=== PATIENT | female | born 1970 ===

== ENCOUNTER 2020-03-30 09:06 | Emergency (ER) | payer OTHER, BC, SELFPAY ==
--- NOTE | ~2020-03-30 | XR_ITS ---
EXAMINATION: XR wrist RT min 3V DATE: 03/30/2020 09:35 INDICATION: Right wrist pain post fall TECHNIQUE: Posteroanterior, oblique, and lateral views of the right wrist were obtained. COMPARISON: none FINDINGS: Alignment is normal. No fracture. 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 Mild osteoarthritis at the first metacarpophalangeal joint. Assessment of the soft tissues at the wrist and carpus is limited by material external to the patient surrounding the wrist. IMPRESSION: 1. No acute osseous abnormality. Reviewed, dictated and finalized at location A.
--- NOTE | ~2020-03-30 | XR_ITS ---
EXAMINATION: XR ankle RT 2V DATE: 03/30/2020 09:35 INDICATION: Right ankle pain post fall TECHNIQUE: Anteroposterior and lateral views of the right ankle were obtained. COMPARISON: None. FINDINGS: Alignment is normal. No fracture. Joint spaces are well maintained. No ankle joint effusion. Small Achilles and plantar calcaneal spurs. The soft tissues are unremarkable. IMPRESSION: 1. No acute osseous abnormality. Reviewed, dictated and finalized at location A.
[2020-03-30 09:09] VITALS: BP 143/91; PULSE 78; RESP 18; TEMP 36.7; O2SAT 99
--- NOTE | 2020-03-30 09:11 | ED.FALL ---
HPI - Fall General Chief Complaint: Fall Stated Complaint: FALL History of Present Illness HPI Narrative: Fall off of the top step of a 3 step onto her right side. She complains of severe pain in the right wrist. She was given 4 mg morphine by EMS with significant improvment. EMS noted deformity prior to splinting. She also reports moderate pain in the right ankle. No wound. She did not hit her head or sustain any additional injuries. Related Data Allergies Allergy/AdvReac Type Severity Reaction Status Date / Time sulfamethoxazole Allergy Severe Swelling Verified 10/16/18 19:16 trimethoprim Allergy Severe Swelling Verified 10/16/18 19:16 Penicillins Allergy Unknown Verified 12/08/15 08:06 Sulfa (Sulfonamide Allergy Unknown Verified 04/25/16 14:35 Antibiotics) Review of Systems Review of Systems: All systems reviewed & are unremarkable except as noted in HPI and below Constitutional: Constitutional: Denies fever(s) Eyes: Eyes: Denies change in vision Cardiovascular: Cardiovascular: Denies chest pain Respiratory: Respiratory: Denies dyspnea Gastrointestinal: Gastrointestinal: Denies abdominal pain Neurologic: Denies dizziness and Denies weakness [facility] Family History Family History Father Hypertension Family history of diabetes mellitus in first degree relative Mother Hypertension Other Family history of Alzheimer's disease Family history of heart disease in male family member before age 55 Family history of seizure disorder Social History Social History Smoking status: Never smoker Alcohol intake: never Gender identity (if verbalized by the patient): Female Exam Const: General: healthy appearing, no acute distress and alert Orientation/consciousness: patient oriented x3 HENMT: Head: normal to inspection Neck: Neck: normal visual inspection and no lymphadenopathy Chest: Chest palpation & inspection: no tenderness Resp: Effort & Inspection: normal respiratory effort Auscultation: clear to auscultation bilaterally, no rales, no rhonchi and no wheezes Cardio: Jugular venous distension: no JVD Rate: regular rate Rhythm: regular rhythm Heart sounds: no murmurs GI: Inspection: non-distended GI Palp: Yes Soft to palpation and No Tenderness to palpation present (GI) Skin: General skin exam: normal color Neuro: General: patient oriented x3 and moves all extremities Speech: normal speech Extrem: Other: Pain and moderate swelling in the right wrist. distal motor and sensation intact. Tenderness over the right lateral maleolus without obvious injury. Psych: Appearance: well kempt Affect: normal affect Course Vital Signs Vital signs: Vital Signs Temperature 36.7 C 03/30/20 09:09 Pulse Rate 78 03/30/20 09:09 Respiratory Rate 18 03/30/20 09:09 Blood Pressure 143/91 H 03/30/20 09:09 Pulse Oximetry 99 03/30/20 09:09 Temperature 36.7 C 03/30/20 09:09 Pulse Rate 76 03/30/20 11:04 Respiratory Rate 18 03/30/20 11:04 Blood Pressure 132/78 03/30/20 11:04 Pulse Oximetry 99 03/30/20 11:04 MDM - Fall Imaging Data Radiologist's impression: ITS Impressions Ankle X-Ray 03/30/20 09:37 IMPRESSION: 1. No acute osseous abnormality. Wrist X-Ray 03/30/20 09:39 IMPRESSION: 1. No acute osseous abnormality. Discharge Plan Discharge Clinical Impression: Sprain of wrist, right Qualifiers: Encounter type: initial encounter Qualified Code(s): S63.501A - Unspecified sprain of right wrist, initial encounter Ankle sprain Qualifiers: Encounter type: initial encounter Involved ligament of ankle: unspecified ligament Laterality: right Qualified Code(s): S93.401A - Sprain of unspecified ligament of right ankle, initial encounter Patient Disposition: Home, Self-Care Condition: Stable Instructions: Ankle Sprain (E
[2020-03-30 10:06] VITALS: BP 152/79; PULSE 71; RESP 17; O2SAT 99
[2020-03-30] MEDS: IBUPROFEN 600 MG TABLET PO (10:26)
[2020-03-30 11:04] VITALS: BP 132/78; PULSE 76; RESP 18; O2SAT 99
== END 2020-03-30 11:06 | disposition home or self-care (01) ==
PROVIDERS: Emergency Provider Emergency Medicine; PCP Family Medicine
DX: S63.501A Unspecified sprain of right wrist, initial encounter (principal); W10.9XXA Fall (on) (from) unspecified stairs and steps, initial encounter
CPT/HCPCS: 73110; 73600; 99284; A9270